=== PATIENT | male | born 1990 | race Caucasian/White ===

== ENCOUNTER 2022-03-24 19:44 | Emergency (ER) | payer OTHER ==
[~2022-03-24] VITALS: Ht 165.1 cm; Wt 81.8 kg
[2022-03-24] MEDS ORDERED: PERTUSS(ACELL),DIPH,TET VAC/PF 0.5 ML SYRINGE IM. ONE (22:00)
[2022-03-24] MEDS ORDERED: ACETAMINOPHEN 325 MG TABLET PO ONE (22:00)
[2022-03-24] MEDS ORDERED: LIDOCAINE 1%/EPI 1:200,000/PF 30 ML VIAL SQ ONE (22:00)
[2022-03-24 22:34] VITALS: BP 133/80
[2022-03-24] MEDS ORDERED: BACITRACIN ZINC/POLYMYXIN B 14.2 GM OINTMENT TP ONE (22:45)
== END 2022-03-24 23:31 | disposition home or self-care (01) ==
LOC: EMS 19:47
DX: S01.511A Laceration without foreign body of lip, initial encounter (principal); J45.909 Unspecified asthma, uncomplicated; I10 Essential (primary) hypertension; R07.81 Pleurodynia; Y04.8XXA Assault by other bodily force, initial encounter; Y93.89 Activity, other specified; Y92.89 Other specified places as the place of occurrence of the external cause; Y99.8 Other external cause status
CPT/HCPCS: 99284; 70450; 71046; 71110; 72125; 90715; 90471; 12011; J3490